=== PATIENT | female | born 1950 | race Caucasian/White ===

== ENCOUNTER 2018-06-15 07:00 | Inpatient (IN) | payer OTHER, BC ==
--- NOTE | 2018-06-03 18:03 | GHP ---
[f rep st] PREOP HISTORY AND PHYSICAL DATE OF ADMISSION: 06/15/2018 PROBLEM: Right hip arthritis. HISTORY OF PRESENT ILLNESS: The patient is a 67-year-old woman admitted for a right total hip arthroplasty. She has been aware of progressive pain in her hips for the past 4 years. She is having daily pain and night pain. In May of 2017, she fractured and had surgery with internal fixation. Since then the pain in her hips has been a lot worse. Walking and standing are painful. Her activities are very limited. She uses a cane outside. She has tried chiropractic treatments but they did not help. She also has fibromyalgia. She has tried physical therapy. She has had 2 cortisone injections in each hip, which did not help. The most recent injection was in March of 2018. PAST MEDICAL HISTORY: Hypertension, fibromyalgia. She uses hydrocodone and a muscle relaxant for her back pain and hip pain, and fibromyalgia pain. She has followed by the [facility] in [place], [place]. Treated hypertension. No history of heart disease, stents, DVT, hepatitis, MRSA staph infections, or hereditary bleeding problems. She has questionable sleep apnea. CURRENT MEDICATIONS: Amlodipine for high blood pressure. She occasionally uses [place]. ALLERGIES: Drug allergy: None. Metal allergy: None. Latex allergy: None. SOCIAL HISTORY: The patient is . Her has severe Alzheimer's and is in a memory care unit. She is living alone, although her son and [id number]-wmb are going to come and help her when she goes home from the hospital. She is retired. FAMILY HISTORY: Negative. PHYSICAL EXAMINATION: VITAL SIGNS: Height 5 feet 6 inches, weight 160 pounds, BMI 25.8. EYES: Conjunctivae and sclerae are clear. Pupils are round and reactive. MOUTH: Good oral hygiene. No loose teeth. CHEST: Clear. HEART: Regular rhythm. No murmurs. EXTREMITIES: Pertinent findings are limited to her hips. Her right hip has full extension and 90 degrees of flexion. External rotation 10 degrees. Internal rotation 10 degrees. Abduction 20 degrees. The extremes of motion are painful. IMPRESSION ON ADMISSION: 1. Severe bilateral hip degenerative arthritis. The right hip is more symptomatic than the left. She is prepared for a right total hip arthroplasty. 2. Treatment for hypertension. 3. Status post fracture with open reduction and internal fixation with hardware. 4. Chronic back and hip pain. PLAN: She will undergo a right total hip arthroplasty. The surgery has been described to her, including the risks, complications, expectations, and recovery time. She is about 8 or 9 mm short already on the right. I intend to lengthen her. I may slightly overlengthen her. So I have the option of lengthening the left side when I do that in a couple of months. That will increase the stability in both hips. The risk of dislocation, leg length inequality, infection, sciatic nerve injury and future revision surgery have been reviewed with her. All her questions have been answered, and she consents to surgery. Copy requested to: JO ANN Nation /[id number]/MODL MTDD
[2018-06-15] MEDS ORDERED: TRANEXAMIC ACID 3,000 MG/50 ML BAG IRR ONE (07:19)
[2018-06-15] MEDS ORDERED: ceFAZolin 1 GM/5 ML SYR ONE (07:20)
[2018-06-15] MEDS ORDERED: DEXAMETHASONE 4 MG/ML VIAL ONE (07:47)
[2018-06-15] MEDS ORDERED: LIDOCAINE 2% 100 MG/5 ML SYR ONE (07:47)
[2018-06-15] MEDS ORDERED: ONDANSETRON 4 MG/2 ML VIAL ONE (07:47)
[2018-06-15] MEDS ORDERED: BUPIVACAINE/DEXTROSE 7.5MG/ML 2 ML SPINAL AMP SP ONE (07:47)
[2018-06-15] MEDS ORDERED: fentaNYL 100 MCG/2 ML INJ ONE ×2 (07:48→11:59)
[2018-06-15] MEDS ORDERED: PROPOFOL/EMULSION 500 MG/50 ML BOTTLE IV ONE ×2 (07:48→10:11)
[2018-06-15] MEDS ORDERED: ceFAZolin 2 GM/DEXTROSE 100 ML IV ONE (08:24)
[2018-06-15] MEDS ORDERED: FAMOTIDINE 20 MG TAB PO ONE (08:24)
[2018-06-15] MEDS ORDERED: ACETAMINOPHEN 325 MG TAB PO ONE (08:24)
[2018-06-15] MEDS ORDERED: ONDANSETRON 4 MG/2 ML VIAL IVP ONE (08:24)
[2018-06-15] MEDS ORDERED: DEXAMETHASONE 4 MG/ML VIAL IVP ONE (08:24)
[2018-06-15] MEDS ORDERED: LIDOCAINE 1% 2 ML INJ ID PRN (08:25)
[2018-06-15] MEDS ORDERED: LR 1,000 ML IV ONE (08:25)
--- NOTE | 2018-06-15 08:42 | PDHPUP ---
History & Physical Update H&P update statement: This history and physical update is based on an assessment of the patient which was completed after admission or registration (within 24 hours), but prior to the surgery/procedure. H&P update: H&P reviewed & patient examined
[2018-06-15] MEDS ORDERED: MIDAZOLAM 2 MG/2 ML VIAL ONE (09:12)
[2018-06-15] MEDS ORDERED: MIDAZOLAM 2 MG/2 ML VIAL IVP ONE (09:12)
--- NOTE | 2018-06-15 09:12 | PDANEPAE ---
ANE History of Present Illness Right hip DJD, RTHA ANE Past Medical History - Cardiovascular History Hx Hypertension: Yes Hx Arrhythmias: No Hx Chest Pain: No Hx Coronary Artery / Peripheral Vascular Disease: No Hx CHF / Valvular Disease: No Hx Palpitations: No Cardiovascular History Comment: pcp monitors medications - Pulmonary History Hx COPD: No Hx Asthma/Reactive Airway Disease: No Hx Recent Upper Respiratory Infection: No Hx Oxygen in Use at Home: No Hx Sleep Apnea: Yes Sleep Apnea Screening Result - Last Documented: Negative - Neurologic History Hx Cerebrovascular Accident: No Hx Seizures: No Hx Dementia: No - Endocrine History Hx Diabetes: No - Renal History Hx Renal Disorders: No Renal History Comment: bladder starting to get a little weak but no issues currently - Liver History Hx Hepatic Disorders: No - Neurological & Psychiatric Hx Hx Neurological and Psychiatric Disorders: No Neurological / Psychiatric History Comment: has alzheimers - Cancer History Hx Cancer: No - Congenital Disorder History Hx Congenital Disorders: No - GI History Hx Gastrointestinal Disorders: Yes Gastrointestinal History Comment: hx of hemorrhoid surgery x2. chronic constipation - Other Health History Other Health History: wears glasses. fibromyalgia - Chronic Pain History Chronic Pain: Yes (right hip pain) - Surgical History Prior Surgeries: wisdom teeth. d&c. t12 back fusion 05/2017 s/p fall. hysterectomy 2008. tubal ligation 1983. bilateral carpal tunnel repairs. hemorrhoid surgery x2 ANE Review of Systems Review of Systems: - Exercise capacity METS (RN): 4 METS ANE Patient History - Allergies Allergies/Adverse Reactions: adhesive tape Allergy (Verified 06/02/18 13:09) skin irritation from prolonged exposure - Home Medications Home Medications: Acetaminophen [Tylenol ES 500 mg (*)] 500 mg PO BID PRN 05/26/18 [Last Taken 1 Day Ago ~06/14/18] Herbals/Supplements -Info Only 1 ea PO DAILY 05/26/18 [Last Taken 3 Days Ago ~] Hydrocodone/Acetaminophen [[place] 7.5-325 Tablet] 1 each PO DAILY PRN 05/26/18 [ Last Taken 2 Days Ago ~06/13/18] Magnesium Oxide [Magnesium Oxide 400 mg (*)] 400 mg PO DAILY PRN 05/26/18 [Last Taken 1 Day Ago ~06/14/18] Methocarbamol [Robaxin 750 mg (*)] 750 mg PO BID PRN 05/26/18 [Last Taken 1 Day Ago ~06/14/18] amLODIPine BESYLATE [Norvasc 5 mg (*)] 5 mg PO DAILY 05/26/18 [Last Taken 06:30] oxyCODONE IR [Oxycodone Ir (*)] 10 mg PO DAILY PRN 05/26/18 [Last Taken 2 Weeks Ago ~06/01/18] - NPO status NPO Since - Liquids (Date): 06/15/18 NPO Since - Liquids (Time): 00:00 NPO Since - Solids (Date): 06/14/18 NPO Since - Solids (Time): 21:00 - Smoking Hx Smoking Status: Never smoked - Family Anes Hx Family Hx Anesthesia Complications: none ANE Labs/Vital Signs - Vital Signs Blood Pressure: 158/79 Heart Rate: 78 Respiratory Rate: 15 O2 Sat (%): 95 Height: 168.91 cm Weight: 74.843 kg ANE Physical Exam - Airway Neck exam: FROM Mallampati Score: Class 2 Mouth exam: normal dental/mouth exam - Pulmonary Pulmonary: no respiratory distress, no rales or rhonchi - Cardiovascular Cardiovascular: regular rate and rhythym, no murmur, rub, or gallop - ASA Status ASA Status: III ANE Anesthesia Plan Anesthesia Plan: GA with mask, spinal Total IV Anesthesia: Yes
[2018-06-15] MEDS ORDERED: TRANEXAMIC ACID 1,000 MG in NS 100 ML IV ONE (09:45)
[2018-06-15] MEDS ORDERED: POVIDONE-IODINE 20 ML in SODIUM CL IRRIG SOLUTION 500 ML IRR ONE (09:45)
[2018-06-15] MEDS ORDERED: TRANEXAMIC ACID 3,000 MG in NS (SYRINGE) 50 ML IRR ONE (09:45)
[2018-06-15] MEDS ORDERED: ROPIVACAINE 0.2% 80 MG, EPINEPHrine 0.2 MG, KETOROLAC TROMETHAMINE 30 MG in SYRINGE 0 ML IU ONE (09:45)
--- NOTE | 2018-06-15 11:14 | POSTOPPROG ---
Post Op Note Date of Operation: 06/15/18 Surgeon: Bryce Townsend Logistics Engineering Manager: Van Anesthesiologist: Cyndi Anesthesia: IV Sedation, Spinal Post-op Diagnosis: Right hip severe degenerative arthritis Procedure: Right total hip arthroplasty Inf/Abcess present in the surg proc area at time of surgery?: No EBL: 100-500
[2018-06-15] MEDS ORDERED: MAGNESIUM OXIDE 400 MG TAB PO PRN (11:22)
[2018-06-15] MEDS ORDERED: METHOCARBAMOL 750 MG TAB PO PRN (11:22)
[2018-06-15] MEDS ORDERED: DIPHENOXYLATE/ATROPINE LOMOTIL 1 TAB PO PRN (11:23)
[2018-06-15] MEDS ORDERED: NS 500 ML IV PRN (11:23)
[2018-06-15] MEDS ORDERED: PROMETHAZINE HCL 25 MG/ML INJ IVP PRN (11:23)
[2018-06-15] MEDS ORDERED: TEMAZEPAM 15 MG CAP PO PRN (11:23)
[2018-06-15] MEDS ORDERED: METOCLOPRAMIDE 10 MG/2 ML VIAL IVP PRN (11:23)
[2018-06-15] MEDS ORDERED: PROMETHAZINE HCL 25 MG SUPPR PR PRN (11:23)
[2018-06-15] MEDS ORDERED: MAGNESIUM HYDROXIDE 30 ML UDCUP PO PRN (11:23)
[2018-06-15] MEDS ORDERED: diphenhydrAMINE 25 MG CAP PO PRN (11:23)
[2018-06-15] MEDS ORDERED: traMADol 50 MG TAB PO PRN (11:23)
[2018-06-15] MEDS ORDERED: ONDANSETRON 4 MG/2 ML VIAL IVP PRN (11:23)
[2018-06-15] MEDS ORDERED: BISACODYL 10 MG SUPP PR PRN (11:23)
[2018-06-15] MEDS ORDERED: POLYETHYLENE GLYCOL 3350 17 GM PKT PO PRN (11:23)
[2018-06-15] MEDS ORDERED: LACTULOSE 20 GM/30 ML UDCUP PO PRN (11:23)
[2018-06-15] MEDS ORDERED: ONDANSETRON DISINTEGRATING 4 MG TAB PO PRN (11:23)
[2018-06-15] MEDS ORDERED: NALOXONE HCL 0.4 MG/ML INJ IVP PRN (11:26)
[2018-06-15] MEDS ORDERED: LR 500 ML IV PRN (11:26)
[2018-06-15] MEDS ORDERED: MEPERIDINE 25 MG/0.5 ML AMP IVP PRN (11:26)
[2018-06-15] MEDS ORDERED: HYDROmorphONE/DILAUDID 2 MG/ML INJ IVP PRN (11:26)
[2018-06-15] MEDS ORDERED: DIAZEPAM 5 MG/ML 1 ML SYR IVP PRN (11:26)
--- NOTE | 2018-06-15 11:26 | POSTANESTH ---
Post Anesthetic Evaluation Cardiovascular Status: Normal, Stable Respiratory Status: Normal, Stable Level of Consciousness/Mental Status: Can Participate in Eval, Mildly Sleepy, Arousable Pain Control: Adequate, Prn Tx Ordered Nausea/Vomiting Control: Adequate, Prn Tx Ordered Complications Possibly Related to Anesthesia: None Noted (moving bilat lower extrem)
[2018-06-15] MEDS ORDERED: LR 1,000 ML IV SCH (11:30)
--- NOTE | 2018-06-15 11:41 | PDMN ---
Medical Necessity Medical necessity: [facility] IP only surgery; cpt 63882 R BELKYS
[2018-06-15] MEDS: fentaNYL 100 MCG/2 ML INJ IVP PRN ×3 (12:00→12:28)
--- NOTE | 2018-06-15 12:26 | GOP ---
[f rep st] OPERATIVE REPORT DATE OF OPERATION: 06/15/2018 SURGEON: Bryce Townsend MD LEAD RELAY TESTER: Bradly Leon PA-C, and Edmar Obando CFA. ANESTHESIA: A combination of Marcaine, spinal, and IV sedation. ANESTHESIOLOGIST: Dr. Randi Hanna. PREOPERATIVE DIAGNOSIS: Right hip severe degenerative arthritis. POSTOPERATIVE DIAGNOSIS: Right hip severe degenerative arthritis. PROCEDURE PERFORMED: Right total hip arthroplasty, ceramic femoral head on highly cross-linked polye thylene cup liner. FINDINGS: ESTIMATED BLOOD LOSS: About 300 mL. DESCRIPTION OF PROCEDURE: The patient was given 2 g of IV Ancef preoperatively within 60 minutes of surgery. She also received 1000 mg preoperatively of IV tranexamic acid. She was placed on the oper ating room table and given spinal anesthesia with Marcaine by Dr. Hanna. She was then placed supine and given IV sedation. A Wang catheter was not used. She wore a BA stocking and SCD on the nonope rative leg. She was rolled to the left lateral decubitus position. The position was secured with [facility] pegboard table attachment. An axillary roll was used, and all pressure points were carefully padde d. I was careful to lock her pelvis in a rigid vertical position. Her perineum was isolated with pl astic adhesive drapes. The right hip and right lower extremity were prepped with ChloraPrep. She santizo d a very small scratch on the lateral aspect of her hip which probably occurred during the skin prepa ration. I sealed this area with Dermabond. Her right lower extremity was draped free using sterile sheets, stockinette, and Ioban plastic drape. The [employer] time-out was performed t o verify the correct surgical side and site and the correct patient identity. The [place] time-out w as also performed. I made a 6-inch curved posterolateral hip skin incision. I modified my incision slightly so that I c ould avoid the area of the superficial skin scratch. Subcutaneous tissues were sharply divided, and hemostasis was obtained using electrocautery. The fascia rosetta was identified and split along the axi s of its fibers. I curved posteriorly and proximally and split the fascia of gluteus alisa and gibran ntly split the muscle fibers in line with their orientation. The [place] self-retaining retractor w as inserted. Her sciatic nerve was located, partially exposed, and protected throughout the procedur e. The external rotators and the posterior hip capsule were divided as separate layers at the base o f the femoral neck, tagged, and reflected posteriorly. A smooth 1/8-inch Steinmann pin was inserted vertically into the ilium, superior to the acetabulum. An 1/8-inch drill bit was inserted vertically into the greater trochanter and parallel to the first pin. The distance between the 2 was measured for leg length reference. Her femoral head was dislocated posteriorly. Severe degenerative changes were present on the femoral head. Her femoral neck was osteotomized at the appropriate level and inc lination. I was careful to preserve all the posterior capsule and most of the anterior capsule. The remnant of her badly damaged labrum was excised. I prepared the femur first. This allowed me to superior court judge the amount of natural femoral neck anteversion. This, in turn, allowed me to later determine the correct amount of cup anteversion. She had approx imately 15 to 18 degrees of natural femoral neck anteversion. The canal was opened laterally with a box chisel. I used a starter reamer, followed by hand broaching sequentially up to size 4. I used a size 4 standard offset Accolate II broach as a trial stem. I was careful to lateralize adequately. Appropriate retractors were inserted to expose the acetabulum. The acetabulum was reamed sequentiall y up to 52 mm. I selected the 52 mm Yogesh Tritanium Trident II cluster hole hemispherical shell. This was tapped securely into place in the proper degree of inclination and anteversion. She had a l ot of periacetabular osteophytes which I trimmed with an osteotome and rongeur. I performed a series of trial reductions to determine length and stability. I obtained an intraoperative cross-table AP pelvis x-ray. I concluded that the size 4 stem with a standard offset was the proper size. It looke d like the cup needed a little additional anteversion. I was using the 36 mm head with a 0 neck mary th. This gave me the appropriate amount of lengthening. She was approximately 10 mm short preoperat ively, and I was lengthening her to regain that loss. I then went back and repositioned the cup to add 5 or 10 more degrees of anteversion. The cup fixati on was very tight. The 0-degree [place] X3 highly cross-linked polyethylene liner was inserted and t apped securely into place. The Yogesh Accolade II stem in size 4 with standard offset was inserted press-fit and was very tight. I did 1 final trial reduction and confirmed that the 0 neck length wit h a 36 mm head was the proper combination. The [place] Biolox Delta ceramic head with an outside ebony meter of 36 mm and a neck length of 0 mm was tapped securely onto the clean trunnion. The acetabulum was irrigated, cleaned, and the hip was reduced 1 final time. She had excellent anterior and counter roller ior stability and appropriate lengthening. 40 mL of the joint anesthetic cocktail were injected into the capsule, the deep musculature, and the subcutaneous tissues around the skin edges. The joint was thoroughly irrigated 1 final time with a d ilute Betadine solution. 50 cc of tranexamic acid were irrigated into the wound. Her sciatic nerve was reinspected and looked unharmed. The external rotators and the posterior hip capsule were repaired in separate layers with #2 FiberWir e sutures through drill holes in the greater trochanter. This provided a strong posterior capsule an d external rotator repair. The fascia rosetta was closed first with 2 kseamg-wv-ebeym #2 FiberWire sutu res, followed by a running #2 barbed Ethicon Stratafix PDO suture. The subcutaneous tissues were hiram sed in layers using interrupted 2-0 Monocryl sutures, followed by a running 0 barbed Ethicon Stratafi x Monoderm suture. The skin was closed with a running 3-0 barbed Ethicon Stratafix Monoderm subcutic ular suture. The skin edges were reapproximated and sealed with Dermabond glue. The wound was cover ed with a large piece of waterproof Mepilex surgical dressing. The sacral Mepilex dressing was also applied. A long-leg BA stocking and SCD were applied to her right lower extremity. She wore a stocking and S CD on the opposite leg during the procedure. An abduction pillow was placed between her knees. She was awakened from anesthesia and rolled to the supine position on her [facility]. She was taken to PACU in satisfactory condition. There were no recognized intraoperative complications. COUNTS: The sponge and needle counts were correct on 2 occasions. IMPLANTS: I used a Yogesh Tritanium Trident II cluster hole acetabular shell with an outside diamet er of 52 mm. The liner was a [place] X3 0-degree highly cross-linked liner with an inside diameter o f 36 mm. The femoral component was a press-fit [place] standard offset Accolade II stem in a size 4. The femoral head was a Yogesh Biolox Delta ceramic head with a 0 neck length and a 36 mm outside d iameter. Bradly Leon and Edmar Obando acted as surgical assistants. Their assistance was a medical necess ity for safe completion of the procedure. Copy requested to: Purvi Noriega [place] /[id number]/MODL
[2018-06-15] MEDS: ACETAMINOPHEN 325 MG TAB PO SCH ×3 (13:37→23:54)
[2018-06-15] MEDS: KETOROLAC 15 MG/1 ML SDV IVP SCH ×3 (13:38→23:54)
[2018-06-15] MEDS: oxyCODONE IR 5 MG TAB PO PRN (15:31)
[2018-06-15] MEDS: ceFAZolin 2 GM/DEXTROSE 100 ML IV SCH (18:50)
[2018-06-15] MEDS: FAMOTIDINE 20 MG TAB PO SCH (21:24)
[2018-06-15] MEDS: SENNOSIDES/DOCUSATE SODIUM TAB PO SCH (21:24)
[2018-06-15] MEDS: ASPIRIN 325 MG TAB PO SCH (21:24)
[2018-06-16] MEDS: ceFAZolin 2 GM/DEXTROSE 100 ML IV SCH (02:03)
[2018-06-16] MEDS: ACETAMINOPHEN 325 MG TAB PO SCH ×2 (06:30→12:04)
[2018-06-16] MEDS: KETOROLAC 15 MG/1 ML SDV IVP SCH (06:30)
--- NOTE | 2018-06-16 07:26 | SOAPPROG ---
SOAP Progress Note Assessment/Plan: Assessment: Afebrile. Awake and alert. She has been walking in the room. Her dressing is dry. Sciatic nerve intact. Postop H&H are good. Postop films look excellent. Plan: Up with physical therapy today. Discharge later today. She will go to outpatient physical therapy next week. 06/16/18 07:25 Objective: Vital Signs Temp Pulse Resp BP Pulse Ox 36.4 C 98 16 147/82 H 95 06/15/18 23:51 06/15/18 23:51 06/15/18 23:51 06/15/18 23:51 06/15/18 23:51 Laboratory Results 06/16/18 04:16 06/15/18 06/16/18 06/17/18 05:59 05:59 05:59 Intake Total 2775 Output Total 2960 Balance 175 ICD10 Worksheet Patient Problems: Problems Problem Status Onset Osteoarthritis of right hip Acute
[2018-06-16 07:31] VITALS: BP 143/67
[2018-06-16] MEDS ORDERED: FERROUS SULFATE 325 MG TAB PO SCH (08:00)
[2018-06-16] MEDS: FAMOTIDINE 20 MG TAB PO SCH (08:13)
[2018-06-16] MEDS: SENNOSIDES/DOCUSATE SODIUM TAB PO SCH (08:13)
[2018-06-16] MEDS: ASPIRIN 325 MG TAB PO SCH (08:13)
[2018-06-16] MEDS ORDERED: amLODIPine BESYLATE 5 MG TAB PO SCH (09:00)
[2018-06-16] MEDS: oxyCODONE IR 5 MG TAB PO PRN (09:41)
--- NOTE | 2018-06-16 11:30 | ASMTLACE ---
LACE Length of stay for Answers: 2 days current admission Acuity / Level of Answers: Yes Care: Did the patient have an inpatient admission? Comorbidities - select Answers: Opioid dependence all that apply / Chronic pain Other Notes: HTN # of Emergency department Answers: 0 visits in the last 6 months Score: 10 Date Signed: 06/16/2018 11:29 AM Electronically Signed By:MARY ELLEN Adames
--- NOTE | 2018-06-16 11:32 | ASMTCMCOM ---
CM Note CM Note Notes: Pt had planned OA of hip. Pt has family to stay w her for recovery. PT rec home/outpatient. Pt medically stable for d/c, no CM d/c needs identified. Date Signed: 06/16/2018 11:31 AM Electronically Signed By:MARY ELLEN Adames
--- NOTE | 2018-06-16 13:47 | GDS ---
[f rep st] DISCHARGE SUMMARY ADMISSION DIAGNOSIS: Right hip severe degenerative arthritis. POSTOP DIAGNOSIS: Right hip severe degenerative arthritis. OPERATION PERFORMED: 06/15/2018, right total hip arthroplasty. POSTOPERATIVE COMPLICATIONS: None. CONDITION ON DISCHARGE: Improved. DESCRIPTION OF HOSPITAL COURSE: The patient was admitted to the hospital the morning of surgery. He r admission CBC was normal. The same day, under a combination of Marcaine, spinal, and IV sedation, she underwent a right total hip arthroplasty. Postoperatively, she was treated with multimodal DVT p rophylaxis, including aspirin. On the first postoperative day, her hemoglobin and hematocrit were 12 .6 and 37.0. She was seen by Physical Therapy and made good progress with ambulation and stairs. By the time of discharge, she was afebrile and was independent walking with a walker. DISPOSITION: The patient is discharged to her home. Her daughter will help care for her. She may p rogress to full weightbearing on the right as tolerated. Continue aspirin 325 mg p.o. daily for 21 d ays. She has prescriptions for oxycodone, tramadol and Celebrex for pain control. Use BA stockings for 1 week. Use an abduction pillow in bed for 3 weeks. I will see her back in the office on July 05, 2018. She will go to outpatient physical therapy next week. If any problems, she is to call me at the office. Copy requested to: Dr. Ge Elias, [place] /[id number]/MODL
== END 2018-06-16 12:58 | disposition home or self-care (01) | DRG 470 ==
LOC: F3N 08:15
PROVIDERS: ADMIT Orthopaedic Surgery; ATTEND Orthopaedic Surgery
PROC: 0SR904A Replacement of Right Hip Joint with Ceramic on Polyethylene Synthetic Substitute, Uncemented, Open Approach (ICD-10-PCS; principal; 2018-06-15 09:45)
DX: M16.11 Unilateral primary osteoarthritis, right hip (principal); I10 Essential (primary) hypertension; M79.7 Fibromyalgia; G89.29 Other chronic pain; K21.9 Gastro-esophageal reflux disease without esophagitis; K59.09 Other constipation
CPT/HCPCS: 97110-GP; 97116-GP; 97161-GP; 97165-GO; 97535-GO; J0171; J0690; J1100; J1885; J2001; J2250; J2405; J2704; J2795; J3010

== ENCOUNTER 2018-08-25 08:40 | Inpatient (IN) | payer OTHER, BC ==
[~2018-08-25 08:40] MED LIST: POVIDONE-IODINE 20 ML in SODIUM CL IRRIG SOLUTION 500 ML IRR ONE; ROPIVACAINE 0.2% 80 MG, EPINEPHrine 0.2 MG, KETOROLAC TROMETHAMINE 30 MG in SYRINGE 0 ML IU ONE; TRANEXAMIC ACID 1,000 MG in NS 100 ML IV ONE; TRANEXAMIC ACID 3,000 MG in NS (SYRINGE) 50 ML IRR ONE; TRANEXAMIC ACID 3,000 MG/50 ML BAG IRR ONE; ceFAZolin 1 GM/5 ML SYR ONE
[2018-08-25] MEDS ORDERED: ceFAZolin 2 GM/DEXTROSE 100 ML IV ONE (08:52)
[2018-08-25] MEDS ORDERED: GABAPENTIN 300 MG CAP PO ONE (08:52)
[2018-08-25] MEDS ORDERED: ONDANSETRON 4 MG/2 ML VIAL IVP ONE (08:52)
[2018-08-25] MEDS ORDERED: DEXAMETHASONE 4 MG/ML VIAL IVP ONE (08:52)
[2018-08-25] MEDS ORDERED: ACETAMINOPHEN 325 MG TAB PO ONE (08:52)
[2018-08-25] MEDS ORDERED: FAMOTIDINE 20 MG TAB PO ONE (08:52)
[2018-08-25] MEDS ORDERED: LIDOCAINE 1% 2 ML INJ ID PRN (08:53)
[2018-08-25] MEDS ORDERED: LR 1,000 ML IV ONE (08:53)
--- NOTE | 2018-08-25 09:17 | PDANEPAE ---
ANE History of Present Illness OA here for BELYKS ANE Past Medical History - Cardiovascular History Hx Hypertension: Yes Hx Arrhythmias: No Hx Chest Pain: No Hx Coronary Artery / Peripheral Vascular Disease: No Hx CHF / Valvular Disease: No Hx Palpitations: No Cardiovascular History Comment: pcp monitors medications - Pulmonary History Hx COPD: No Hx Asthma/Reactive Airway Disease: No Hx Recent Upper Respiratory Infection: No Hx Oxygen in Use at Home: No Hx Sleep Apnea: Yes Sleep Apnea Screening Result - Last Documented: Positive - Neurologic History Hx Cerebrovascular Accident: No Hx Seizures: No Hx Dementia: No - Endocrine History Hx Diabetes: No - Renal History Hx Renal Disorders: No Renal History Comment: bladder starting to get a little weak but no issues currently - Liver History Hx Hepatic Disorders: No - Neurological & Psychiatric Hx Hx Neurological and Psychiatric Disorders: No Neurological / Psychiatric History Comment: has alzheimers. carpal tunnel R hand numbness - Cancer History Hx Cancer: Yes Cancer History Comment: pre-cancerous cells removed - Congenital Disorder History Hx Congenital Disorders: No - GI History Hx Gastrointestinal Disorders: Yes Gastrointestinal History Comment: hx of hemorrhoid surgery x2. chronic constipation - Other Health History Other Health History: wears glasses. fibromyalgia - Chronic Pain History Chronic Pain: Yes (right hip pain) - Surgical History Prior Surgeries: wisdom teeth. d&c. t12 back fusion 05/2017 s/p fall. hysterectomy 2008. right hip arthroplasty 2019. tubal ligation 1984. bilateral carpal tunnel repairs. hemorrhoid surgery x2 ANE Review of Systems Review of Systems: - Exercise capacity METS (RN): 4 METS ANE Patient History - Allergies Allergies/Adverse Reactions: adhesive tape Allergy (Verified 08/17/18 15:15) skin irritation from prolonged exposure - Home Medications Home Medications: Herbals/Supplements -Info Only 1 ea PO DAILY 05/26/18 [Last Taken 3 Days Ago ~] Magnesium Oxide [Magnesium Oxide 400 mg (*)] 400 mg PO DAILY PRN 05/26/18 [Last Taken 1 Day Ago ~06/14/18] Methocarbamol [Robaxin 750 mg (*)] 750 mg PO BID PRN 05/26/18 [Last Taken 1 Day Ago ~06/14/18] amLODIPine BESYLATE [Norvasc 5 mg (*)] 5 mg PO DAILY 05/26/18 [Last Taken 06:30] Acetaminophen [Tylenol ES 500 mg (*)] 500 mg PO HS 08/16/18 [Last Taken Unknown] oxyCODONE IR [Oxycodone Ir (*)] 5 mg PO Q3HRS PRN 08/16/18 [Last Taken Unknown] - NPO status NPO Status: no food or drink >8 hours - Anes Hx Anes Hx: slow to awaken from anesthesia - Smoking Hx Smoking Status: Never smoked - Alcohol Use Alcohol Use: Rarely - Family Anes Hx Family Anes Hx: none Family Hx Anesthesia Complications: none ANE Labs/Vital Signs - Vital Signs Vital Signs: reviewed preoperatively; see RN documention for details Height: 168.91 cm Weight: 72.575 kg ANE Physical Exam - Airway Neck exam: FROM Mallampati Score: Class 2 Mouth exam: normal dental/mouth exam - Pulmonary Pulmonary: no respiratory distress, clear to auscultation - Cardiovascular Cardiovascular: regular rate and rhythym, no murmur, rub, or gallop - ASA Status ASA Status: III ANE Anesthesia Plan Anesthesia Plan: GA w LMA, GA with mask, spinal Total IV Anesthesia: Yes
[2018-08-25] MEDS ORDERED: MIDAZOLAM 2 MG/2 ML VIAL IVP ONE (09:24)
[2018-08-25] MEDS ORDERED: PROPOFOL/EMULSION 500 MG/50 ML BOTTLE IV ONE ×2 (10:24→11:52)
--- NOTE | 2018-08-25 12:33 | POSTOPPROG ---
Post Op Note Date of Operation: 08/25/18 Surgeon: Bryce Townsend Child Care: Van Anesthesiologist: Hamida Anesthesia: IV Sedation, Spinal Pre-op Diagnosis: left hip arthritis Post-op Diagnosis: left hip arthritis and gluteus medius partial tear Procedure: L BELKYS and glut medius repair. Inf/Abcess present in the surg proc area at time of surgery?: No EBL: 100-500
[2018-08-25] MEDS ORDERED: HYDROmorphONE/DILAUDID 1 MG/ML INJ IVP PRN (12:43)
[2018-08-25] MEDS ORDERED: ACETAMINOPHEN 500 MG TAB PO PRN (12:43)
[2018-08-25] MEDS ORDERED: fentaNYL 100 MCG/2 ML INJ IVP PRN (12:43)
[2018-08-25] MEDS ORDERED: NALOXONE HCL 0.4 MG/ML INJ IVP PRN (12:43)
[2018-08-25] MEDS ORDERED: ONDANSETRON 4 MG/2 ML VIAL IVP PRN ×2 (12:43→12:46)
[2018-08-25] MEDS ORDERED: HYDROCODONE/APAP 5/325 TAB PO PRN (12:43)
[2018-08-25] MEDS ORDERED: oxyCODONE IR 5 MG TAB PO PRN (12:43)
[2018-08-25] MEDS ORDERED: MAGNESIUM OXIDE 400 MG TAB PO PRN (12:45)
[2018-08-25] MEDS ORDERED: METHOCARBAMOL 750 MG TAB PO PRN (12:45)
[2018-08-25] MEDS ORDERED: PROMETHAZINE HCL 25 MG SUPPR PR PRN (12:46)
[2018-08-25] MEDS ORDERED: ONDANSETRON DISINTEGRATING 4 MG TAB PO PRN (12:46)
[2018-08-25] MEDS ORDERED: diphenhydrAMINE 25 MG CAP PO PRN (12:46)
[2018-08-25] MEDS ORDERED: traMADol 50 MG TAB PO PRN (12:46)
[2018-08-25] MEDS ORDERED: BISACODYL 10 MG SUPP PR PRN (12:46)
[2018-08-25] MEDS ORDERED: METOCLOPRAMIDE 10 MG/2 ML VIAL IVP PRN (12:46)
[2018-08-25] MEDS ORDERED: LACTULOSE 20 GM/30 ML UDCUP PO PRN (12:46)
[2018-08-25] MEDS ORDERED: TEMAZEPAM 15 MG CAP PO PRN (12:46)
[2018-08-25] MEDS ORDERED: MAGNESIUM HYDROXIDE 30 ML UDCUP PO PRN (12:46)
[2018-08-25] MEDS ORDERED: CYCLOBENZAPRINE 10 MG TAB PO PRN (12:46)
[2018-08-25] MEDS ORDERED: POLYETHYLENE GLYCOL 3350 17 GM PKT PO PRN (12:46)
[2018-08-25] MEDS ORDERED: NS 500 ML IV PRN (12:46)
[2018-08-25] MEDS ORDERED: DIPHENOXYLATE/ATROPINE LOMOTIL 1 TAB PO PRN (12:46)
[2018-08-25] MEDS ORDERED: PROMETHAZINE HCL 25 MG/ML INJ IVP PRN (12:46)
--- NOTE | 2018-08-25 12:47 | POSTANESTH ---
Post Anesthetic Evaluation Cardiovascular Status: Normal, Stable, Similar to Pre-Op Cond Respiratory Status: Normal, Stable, Similar to Pre-op Cond. Level of Consciousness/Mental Status: Can Participate in Eval, Mildly Sleepy, Arousable Pain Control: Adequate, Prn Tx Ordered Nausea/Vomiting Control: Adequate, Prn Tx Ordered Complications Possibly Related to Anesthesia: None Noted
[2018-08-25] MEDS ORDERED: LR 1,000 ML IV SCH (13:00)
--- NOTE | 2018-08-25 14:00 | GOP ---
[f rep st] OPERATIVE REPORT DATE OF OPERATION: 08/25/2018 SURGEON: Bryce Townsend MD FLOTATION TANK OPERATOR: 1. Seth Leon, PAC. 2. Edmar Obando [facility]. ANESTHESIA: A combination of Marcaine, spinal, and IV sedation. ANESTHESIOLOGIST: Sanjay Mei MD PREOPERATIVE DIAGNOSIS: Left hip severe degenerative arthritis. POSTOPERATIVE DIAGNOSIS: 1. Left hip severe degenerative arthritis. 2. 50% tear of the left gluteus medius tendon post. PROCEDURE PERFORMED: 1. Left total hip arthroplasty. Ceramic femoral head on highly cross-linked polyethylene cup liner. 2. Repair of left gluteus medius tendon tear. FINDINGS: ESTIMATED BLOOD LOSS: About 400 mL. DESCRIPTION OF PROCEDURE: The patient was given 2 g of IV Ancef preoperatively within 60 minutes of surgery. She also received 1000 mg of IV tranexamic acid. She was placed on the operating room tabl e and given spinal anesthesia with Marcaine by Dr. Mei. She was then placed supine and given IV se dation. A Wang catheter was not used. She wore a BA stocking and SCD on the nonoperative leg. e was rolled to the right lateral decubitus position. The position was secured with the pegboard tab le attachment. An axillary roll was used, and all pressure points were carefully padded. I was care ful to lock her pelvis in a vertical position. Her perineum was isolated with plastic adhesive drape s. The left hip and left lower extremity were prepped with ChloraPrep. They were draped free using sterile sheets, stockinette, and Ioban plastic adhesive drapes. The [employer] time-out was performed to verify the correct surgical side and site and the correct patient identity. The [place] time-out was also performed. I made a 6-inch straight oblique posterolateral hip skin incision. The subcutaneous tissues were sha rply divided, and hemostasis was obtained using electrocautery. The fascia rosetta was identified and s plit along the axis of its fibers. I then curved posteriorly and proximally, and split the fascia of the gluteus alisa, and bluntly split the muscle fibers in line with their orientation. The [facility] self-retaining retractor was inserted. Her sciatic nerve was located, partially exposed, and prot ected throughout the procedure. The lateral aspect of her greater trochanter was denuded of soft tissues. The bony surface was irreg ular and had a few small osteophytic bumps. Her gluteus medius insertion was abnormal. It looked li ke she had about a 50% tear of the gluteus medius, primarily anteriorly. The posterior 50% I could s till palpate were attached to the tip of the trochanter. I later repaired her gluteus medius tear. These changes looked quite chronic. The external rotators and the posterior hip capsule were divided as separate layers at the base of th e femoral neck, tagged, and reflected posteriorly. A smooth 8-inch Steinmann pin was inserted vertic ally into the ilium, superior to the acetabulum. An eighth-inch drill bit was inserted vertically in to the greater trochanter and parallel to the first pin. The distance between the 2 was measured for leg length reference. Her femoral head was dislocated posteriorly. Severe degenerative changes wer e present on the femoral head. The femoral neck was osteotomized at the appropriate level and inclin ation. I was careful to preserve all the posterior capsule and most of the anterior capsule. The remnant of her badly damaged labrum was excised. I prepared the femur first. This allowed me to information systems project manager the amount of natural femoral neck anteversion. This, in turn, allowed me to later determine the correct amount of cup anteversion. She had approx imately 18-20 degrees of natural femoral neck anteversion. The canal was opened laterally with a box chisel. I then used the power starter reamer followed by hand broaching sequentially up to size 3. I used the size 3 standard offset Accolade II broach as a trial stem. I was careful to lateralize a dequately. Appropriate retractors were inserted to expose the acetabulum. The acetabulum was reamed sequentiall y up to 52 mm. I selected a 52 mm Yogesh Tritanium Trident II cluster hole hemispherical shell. Th is was tapped securely into place in the proper degree of inclination and anteversion. I used her tr ansverse acetabular ligament and other acetabular bony landmarks to help me properly orient the cup. Fixation was very tight and supplemental screws were not necessary. She had a moderately large post erior inferior osteophyte, which I removed with an osteotome and rongeur. I also removed some bone o verhanging superiorly with a rongeur. I performed a series of trial reductions to determine length and stability. I obtained an intraopera tive cross-table AP pelvis x-ray. I concluded that the high-offset stem with a +2.5 mm neck length a nd a 36 mm head with a 0 degree liner gave me the proper combination of appropriate length and good a nterior and posterior stability. Based on her intraoperative x-ray, I felt the high-offset stem more accurately matched her offset on the other side. The size 3 stem fit very well. The 0 degree lip Yogesh X3 highly cross-linked polyethylene liner was inserted and tapped securely i nto place. The Yogesh Accolade II stem in a size 3 with high offset was inserted press-fit and was very tight. I did 1 final trial reduction and confirmed that the +2.5 mm neck length with a 36 mm he ad was the proper combination. The Watts Biolox Delta ceramic head with an outside diameter of 36 mm and a neck length of +2.5 mm was tapped securely onto the clean trunnion. The acetabulum was irri gated and cleaned, and the hip was reduced 1 final time. She had excellent anterior and posterior st ability and appropriate length. 40 mL of the joint anesthetic cocktail were injected into the capsule, the deep musculature, and subc utaneous tissues around the skin edges. The joint was thoroughly irrigated 1 final time with a dilut e Betadine solution. Her sciatic nerve was reinspected and looked unharmed. 50 mL of tranexamic aci d solution were irrigated into the wound. The external rotators and the posterior hip capsule were r epaired in separate layers with #2 FiberWire sutures through drill holes in the greater trochanter. Her gluteus medius tendon where I could visualize the tear was mobilized and advanced and sewn back t o the greater trochanter using #2 FiberWire [id number] sutures through drill holes in the greate r trochanter. The fascia rosetta was closed first with 2 interrupted [id number]-vpeed #2 FiberWire sutures followed by a running #2 barbed Ethicon Stratafix PDO suture. The subcutaneous tissues were closed in layers wit h interrupted 2-0 Monocryl sutures, followed by a running 0 barbed Ethicon Stratafix Monoderm suture. Her subcutaneous fat layer was about 2 inches thick. The skin was closed with a running 3-0 barbed Ethicon Stratafix Monoderm subcuticular suture. The skin edges were reapproximated and sealed with Dermabond glue. The wound was covered with a large Mepilex waterproof dressing. The Mepilex sacral dressing was also applied. A long-leg BA stocking and SCD were applied to her left lower extremity. She wore a stocking and SC D on the opposite leg during the procedure. An abduction pillow was placed between her knees. She w as awakened from anesthesia and rolled to the supine position on her [facility]. She was taken to PACU in satisfactory condition. There were no recognized intraoperative complications. COUNTS: The sponge and needle count were correct on 2 occasions. I used a Yogesh Trident II Tritanium hemispherical cluster hole acetabular shell with an outside ebony meter of 52 mm. The liner was a Yogesh X3 0-degree highly cross-linked liner with an inside diamete r of 36 mm. The femoral component was a high-offset Accolade II stem in a size 3 and press-fit. The femoral head was a Watts Biolox Delta ceramic head with a +2.5 mm neck length and a 36 mm outside diameter. Bradly Leon and Edmar Obando acted as surgical assistants. Their assistance was a medical necess ity for safe completion of the procedure. Copy requested to: Edmar Noriega /[id number]/[facility]
--- NOTE | 2018-08-25 14:20 | PDMN ---
Medical Necessity Medical necessity: [facility] IP only surgery; cpt [id number] L BELKYS
--- NOTE | 2018-08-25 14:45 | SOAPPROG ---
SOAP Progress Note Assessment/Plan: Assessment: 67 year old female s/p left BELKYS, posterior aspect - procedure earlier today Pain tolerable, doing well X-rays look good Sciatic nerve intact Plan: Begin d/c planning - hoping to go home tomorrow, will have someone staying with her through the weekend; she is familiar with the recovery because she had her right hip replaced earlier this year Continue oral pain medication - oxycodone, tramadol, Tylenol, Flexeril, Robaxin , Celebrex Continue PT/OT efforts - WBAT, posterior hip precautions, abduction pillow Continue VTE ppx - aspirin 325 mg once daily, SCDviola, BA mckeon Subjective: Patient states she is doing well, there is minimal pain in the left hip at this time. She is planning to go home tomorrow and states she has someone staying with her through the weekend. She had her right hip replaced by Dr. Townsend about 3 months ago and states she had an excellent outcome, she is familiar with the recovery process. She has not scheduled outpatient PT yet. She denies SOB, CP, fever, chills, nausea. Objective: Vital Signs Temp Pulse Resp BP Pulse Ox 36.5 C 71 18 137/73 H 95 08/25/18 14:13 08/25/18 14:13 08/25/18 14:13 08/25/18 14:13 08/25/18 14:13 08/24/18 08/25/18 08/26/18 05:59 05:59 05:59 Intake Total 650 Output Total 200 Balance 450 Patient resting in bed, no acute distress. LLE: Wound dressings clean, dry and intact. No erythema, purulent drainage or signs of infection. Lower leg compartments are soft and nontender. Patient can actively DF and PF left foot and great toe against resistance. Grossly NVI distally. ICD10 Worksheet Patient Problems: Problems Problem Status Onset Osteoarthritis of left hip Acute Osteoarthritis of right hip Acute
[2018-08-25] MEDS: oxyCODONE IR 5 MG TAB PO PRN ×2 (15:39→21:38)
[2018-08-25] MEDS: KETOROLAC 15 MG/1 ML SDV IVP SCH (18:23)
[2018-08-25] MEDS: ACETAMINOPHEN 325 MG TAB PO SCH (18:24)
[2018-08-25] MEDS: ceFAZolin 2 GM/DEXTROSE 100 ML IV SCH (18:26)
[2018-08-25] MEDS: SENNOSIDES/DOCUSATE SODIUM TAB PO SCH (20:33)
[2018-08-25] MEDS: FAMOTIDINE 20 MG TAB PO SCH (20:34)
[2018-08-25] MEDS: ASPIRIN 325 MG TAB PO SCH (21:38)
[2018-08-26] MEDS: KETOROLAC 15 MG/1 ML SDV IVP SCH ×3 (01:02→12:44)
[2018-08-26] MEDS: ceFAZolin 2 GM/DEXTROSE 100 ML IV SCH (01:03)
[2018-08-26] MEDS: ACETAMINOPHEN 325 MG TAB PO SCH ×3 (01:06→12:41)
--- NOTE | 2018-08-26 07:28 | SOAPPROG ---
SOAP Progress Note Assessment/Plan: Assessment: Afebrile. Awake and alert. Moderate pain. She has been up and walking. Her dressing is dry. Sciatic nerve intact. Postop H&H are good. Postop films look excellent. Plan: Continue physical therapy today. She will be 50% weight-bearing on the left for the 1st 3 weeks to protect gluteus medius repair. Discharge later today. 08/26/18 07:27 Objective: Vital Signs Temp Pulse Resp BP Pulse Ox 36.4 C 100 16 117/71 90 L 08/26/18 04:00 08/26/18 04:00 08/26/18 04:00 08/26/18 04:00 08/26/18 04:00 Laboratory Results 08/26/18 05:16 08/25/18 08/26/18 08/27/18 05:59 05:59 05:59 Intake Total 950 Output Total 1900 Balance -950 ICD10 Worksheet Patient Problems: Problems Problem Status Onset Osteoarthritis of left hip Acute Osteoarthritis of right hip Acute
--- NOTE | 2018-08-26 07:53 | GDS ---
[f rep st] DISCHARGE SUMMARY ADMISSION DIAGNOSIS: Left hip severe degenerative arthritis. DISCHARGE DIAGNOSES: 1. Left hip severe degenerative arthritis. 2. Chronic partial gluteus medius tendon tear. OPERATIONS PERFORMED: 08/25/2018 1. Left total hip arthroplasty. 2. Repair of gluteus medius tendon tear. POSTOPERATIVE COMPLICATIONS: None. CONDITION ON DISCHARGE: Improved. DESCRIPTION OF HOSPITAL COURSE: The patient was admitted to the hospital on the morning of surgery. Her admission CBC was normal. The same day, under a combination of Marcaine, spinal, and IV sedatio n, she underwent a left total hip arthroplasty and a repair of her gluteus medius partial tendon tear . Postoperatively, she was treated with multimodal DVT prophylaxis, including aspirin. On the first postoperative day, her hemoglobin and hematocrit were 12.4 and 37.1. She was seen by Physical Thera py and made good progress with ambulation and stairs. She will be 50% weightbearing on the left for the first 3 weeks to protect her gluteus medius repair. By the time of discharge, she was afebrile, her wound was clean and dry, and she was independent walking with a walker. DISPOSITION: The patient discharged to her home. She will go to outpatient physical therapy. She w ill be 50% weightbearing on the left for 3 weeks. Continue BA stockings for 1 week. Use an abducti on pillow in bed for 3 weeks. She has prescriptions for oxycodone, tramadol and Celebrex for pain co ntrol. I will see her back in the office on September 16, 2018. If there are any problems, she is to call me at the office. Copy requested to: Dr. Harshad Noriega /[id number]/[facility]
[2018-08-26 07:56] VITALS: BP 127/58
[2018-08-26] MEDS ORDERED: FERROUS SULFATE 325 MG TAB PO SCH (08:00)
[2018-08-26] MEDS ORDERED: amLODIPine BESYLATE 5 MG TAB PO SCH (09:00)
[2018-08-26] MEDS: SENNOSIDES/DOCUSATE SODIUM TAB PO SCH (09:42)
[2018-08-26] MEDS: ASPIRIN 325 MG TAB PO SCH (09:43)
[2018-08-26] MEDS: oxyCODONE IR 5 MG TAB PO PRN ×2 (09:43→12:43)
[2018-08-26] MEDS: FAMOTIDINE 20 MG TAB PO SCH (09:43)
--- NOTE | 2018-08-26 10:24 | ASMTLACE ---
LACE Length of stay for Answers: 2 days current admission Acuity / Level of Answers: Yes Care: Did the patient have an inpatient admission? Comorbidities - select Answers: Opioid dependence all that apply / Chronic pain Other Notes: HTN # of Emergency department Answers: 0 visits in the last 6 months Score: 10 Date Signed: 08/26/2018 10:23 AM Electronically Signed By:MARY ELLEN Adames
--- NOTE | 2018-08-26 12:34 | ASMTCMCOM ---
CM Note CM Note Notes: Pt medically stable for d/c. Pt had planned OA of hip. Pt resides alone, will have someone stay with her during her recovery. PT rec home care, aware and arranged [facility]. Oralia with TS visits pt at [facility] today. Date Signed: 08/26/2018 12:34 PM Electronically Signed By:MARY ELLEN Adames
== END 2018-08-26 13:48 | disposition home or self-care (01) | DRG 470 ==
LOC: F1N 08:40 → F3N 14:08
PROVIDERS: ADMIT Orthopaedic Surgery; ATTEND Orthopaedic Surgery
PROC: 0SRB04Z Replacement of Left Hip Joint with Ceramic on Polyethylene Synthetic Substitute, Open Approach (ICD-10-PCS; principal; 2018-08-25 10:30)
DX: M16.12 Unilateral primary osteoarthritis, left hip (principal); I10 Essential (primary) hypertension; M79.7 Fibromyalgia; G89.29 Other chronic pain; Z96.641 Presence of right artificial hip joint
CPT/HCPCS: 97116-GP; 97161-GP; 97165-GO; 97535-GO; J0171; J0690; J1100; J1885; J2250; J2405; J2704; J2795